=== PATIENT | female | born 1950 | race Caucasian/White ===

== ENCOUNTER 2019-07-05 14:17 | Emergency (ER) | payer MEDICAID ==
[~2019-07-05] VITALS: Wt 57.3 kg
[~2019-07-05 14:17] MED LIST: ACET500C5 PO; CEPH-443 PO; CYCL10TA7 PO; HYDR-4011 PO; IBUP-1542 PO; NAPR-688 PO; OMEP40CA38 PO
[2019-07-05 14:25] VITALS: BP 122/61; PULSE 80; RESP 20
== END 2019-07-05 14:44 | disposition home or self-care (01) ==
LOC: E/R 14:17
DX: Z48.01 Encounter for change or removal of surgical wound dressing (principal); E11.9 Type 2 diabetes mellitus without complications; I10 Essential (primary) hypertension; Z95.0 Presence of cardiac pacemaker
CPT/HCPCS: 99281

== ENCOUNTER 2019-07-15 11:53 | Emergency (ER) | payer MEDICAID ==
[~2019-07-15] VITALS: Wt 79.0 kg
[2019-07-15 11:57] VITALS: BP 115/56; PULSE 61; RESP 18
== END 2019-07-15 12:52 | disposition home or self-care (01) ==
LOC: E/R 11:53
DX: Z48.01 Encounter for change or removal of surgical wound dressing (principal); I10 Essential (primary) hypertension; E11.9 Type 2 diabetes mellitus without complications; Z95.0 Presence of cardiac pacemaker
CPT/HCPCS: 99281